=== PATIENT | male | born 1940 | race Caucasian/White ===

== ENCOUNTER 2024-02-20 07:56 | Emergency (ER) | payer MEDICARE, OTHER, SELFPAY ==
[2024-02-20 07:57] VITALS: BP 144/75
--- NOTE | 2024-02-20 08:27 | ED.GENMED ---
History of Present Illness
General
Chief Complaint: Nose Bleed
Time Seen by Provider: 02/20/24 07:57
History of Present Illness
History of Present Illness:
83-year-old male presents to the emergency department for evaluation of spontaneous nosebleed from the right nostril that began this morning. He is not on blood thinners. Bleeding is currently resolved on arrival to the ER.
Past History
Past History
ED Past Medical History: HTN and Hypercholesterolemia; Negative CAD or IDDM
ED Past Surgical History: None
Social History
Tobacco: Former smoker
Alcohol: None
Personal:
Living: with family
Review of Systems
Review of Systems
Allergies reviewed?: Yes
All Other Systems: ROS reviewed and negative except as documented in HPI and ROS
Phy Exam
Physical Exam
Physical Exam:
GEN: Well appearing, NAD, WDWN
HEENT: Oral mucosa moist, no scleral icterus. Clotted blood noted in the right nare, no active bleeding in either nare. Septal deviation noted
Cardiac: Regular rate
Lung: No respiratory distress, no tachypnea
MSK: No gross deformity or injuries
Skin: Good color, no pallor or jaundice, no rashes
Neuro: AO x3, moves all extremities freely
Psych: Calm, cooperative
Course
Vital Signs
Initial and Last Documented VS:
Initial Vital Signs
Pulse Resp BP Pulse Ox
67 20 144/75 96
02/20/24 07:57 02/20/24 07:57 02/20/24 07:57 02/20/24 07:57
Last Documented Vital Signs
Pulse Resp BP Pulse Ox
68 20 135/71 99
02/20/24 09:42 02/20/24 09:42 02/20/24 09:42 02/20/24 09:42
MDM/Problems Addressed
MDM/Problems Addressed:
Nose was irrigated and clots were removed, no further bleeding was noted. No evidence of recent bleeding from a clear source to be cauterized. Recommend nasal saline rinses, educated on supportive care
*Critical Care Note
Total Time (30-74mins, 75-104mins- exclusive of procedures): Not Applicable
ED Attending Note
-
Portions of this chart may have been created with voice recognition software.� Occasional wrong word or��sound alike� substitutions may have occurred due to the inherent limitations of voice recognition software.
Discharge Plan
Departure
Patient Disposition: Home (Routine Discharge)
Date of Disposition: 02/20/24
Time of Disposition: 09:21
Patient with high blood pressure during this ER visit?: No
Discharge Problem:
Acute anterior epistaxis
Instructions: Nosebleeds (DC)
Prescriptions:
No Action
allopurinol 100 MG tablet
100 mg PO DAILY
calcium carbonate [Antacid (calcium carbonate)] 1 TABLET tablet,chewable
500 mg PO DAILY
brimonidine [Alphagan P] 1 DROP drops
1 drp ophthalmic (eye) BID
cholecalciferol (vitamin D3) 1,000 UNITS tablet
1,000 units PO DAILY
ranitidine HCl [Zantac Maximum Strength] 150 MG tablet
150 mg PO DAILY
azelastine 1 SPRAY aerosol,spray
1 spray intranasal BID
diltiazem HCl 120 MG capsule,extended release 24hr
120 mg PO DAILY Qty: 30 3RF
atorvastatin 20 MG tablet
20 mg PO QPM Qty: 30 3RF
codeine-guaifenesin [Guaiatussin AC] 10 ML liquid
10 ml PO Q4HPRN PRN (Reason: cough) Qty: 8 0RF
cefuroxime axetil 500 MG tablet
500 mg PO BID Qty: 10 0RF
doxycycline hyclate 100 MG capsule
100 mg PO BID Qty: 10 0RF
prednisone 10 MG tablet
10 mg PO .TAPER Qty: 30 0RF
Rx Instructions:
Take 40mg daily x3days, 30mg daily x3days,
20mg daily x3days, 10mg daily x3days.
guaifenesin [Mucinex] 600 MG tablet extended release 12hr
600 mg PO BID Qty: 30 0RF
lidocaine 5 % adhesive patch,medicated
1 patch topical DAILY PRN (Reason: PAIN) Qty: 15 0RF
Activity Restrictions/Additional Instructions:
Saline nasal spray three times daily for 1 week
If bleeding reoccurs, hold pressure and lean forward for 15-20 minutes
Interventions
Interventions:
*Risk Screen - Suicide Last Done: 02/20/24 07:57
*General Assessment Last Done: 02/20/24 07:57
*Neglect/Abuse Screening Last Done: 02/20/24 07:57
*ED COVID-19 Vaccine History Last Done: 02/20/24 08:05
*Nursing Disposition Last Done: 02/20/24 09:42
ED-EENT Assessment Last Done: 02/20/24 08:05
Discharge Date and Time
Discharge Date/Time: 02/20/24 09:43
Print Language: [id number]
[2024-02-20 09:42] VITALS: BP 135/71
== END 2024-02-20 09:43 | disposition home or self-care (01) ==
LOC: EMR 07:56
PROVIDERS: EMERGENCY PHYSICIAN Emergency Medicine; FAMILY PHYSICIAN Family Medicine
DX: R04.0 Epistaxis (principal); Z87.891 Personal history of nicotine dependence
CPT/HCPCS: 99282

== ENCOUNTER → 2024-05-02 13:19 | Outpatient (REF) | payer MEDICARE, SELFPAY | LOC: RAD 13:19 | PROVIDERS: ATTENDING PHYSICIAN Family Medicine | DX: R07.89 Other chest pain (principal) | CPT/HCPCS: 71046 ==

== ENCOUNTER → 2024-07-25 09:08 | Outpatient (REF) | payer MEDICARE, SELFPAY | LOC: RCS 09:08 | PROVIDERS: ATTENDING PHYSICIAN Student in an Organized Health Care Education/Training Program; FAMILY PHYSICIAN Family Medicine | DX: R00.1 Bradycardia, unspecified (principal) | CPT/HCPCS: 93225; 93226 ==